=== PATIENT | male | born 1945 | race Caucasian/White ===

== ENCOUNTER → 2017-02-05 | Outpatient (CLI) | payer OTHER | LOC: HEART 5 14:09 | DX: J44.9 Chronic obstructive pulmonary disease, unspecified (principal); Z87.891 Personal history of nicotine dependence; R94.2 Abnormal results of pulmonary function studies | CPT/HCPCS: 94060; 94729 ==

== ENCOUNTER → 2021-05-24 | Outpatient (CLI) | payer MEDICARE | LOC: HEART 5 05-23 11:00 | DX: I70.0 Atherosclerosis of aorta (principal); R55 Syncope and collapse; R60.9 Edema, unspecified; I49.3 Ventricular premature depolarization ==